=== PATIENT | female | born 1990 | race Asian ===

== ENCOUNTER 2023-05-19 10:01 | Outpatient (REF) | payer BC, SELFPAY ==
--- NOTE | ~2023-05-19 | US_ITS ---
EXAMINATION: US PELVIS COMPLETE CLINICAL INFORMATION: Left lower quadrant pain COMPARISON: None TECHNIQUE: Transabdominal and transvaginal imaging was performed. FINDINGS: The uterus is of normal size and echogenicity measuring 9.6 x 2.3 x 3.8 cm. A regular homogeneous endometrium is identified measuring 0.9 cm. Both ovaries are of normal size and echogenicity. The right measures 1.8 x 2.8 x 2.1 cm for a volume of 5.5 mL. The left measures 4.7 x 4.0 x 4.9 cm for a volume of 4.8 mL. A 4.1 cm left ovarian cyst with lacelike internal echoes suggestive of a hemorrhagic cyst, no follow-up imaging recommended. There is no pelvic free fluid. US/US pelvic and transvaginal IMPRESSION: A 4.1 cm left ovarian cyst with lacelike internal echoes suggestive of a hemorrhagic cyst, no follow-up imaging recommended. Otherwise unremarkable pelvic ultrasound.
== END 2023-05-19 10:02 | disposition home or self-care (01) ==
LOC: HO.UMASIMG 10:01
PROVIDERS: Visit Provider Family Medicine
DX: R10.814 Left lower quadrant abdominal tenderness (principal)
CPT/HCPCS: 76830; 76856